=== PATIENT | male | born 1940 | race Caucasian/White ===

== ENCOUNTER → 2016-09-24 | Outpatient (CLI) | payer OTHER, MEDICARE ==
[~2016-09-24] MED LIST: ACCUPRIL40MGTAB PO; ASPIRIN E.C. 8181 MG PO; COREG12.5 MG PO; CRESTOR40 MG PO; EPA1000 MG PO; METFORMIN1000 MG PO; MULTIVITAMIN1 CTB PO; QUINAPRIL40 MG PO; VITAMIN B121000 MC1 PO; VITAMIN D1000 IU PO
== END ==
LOC: SUN.DIA 09-22 15:59
DX: E11.9 Type 2 diabetes mellitus without complications (principal); Z68.30 Body mass index [BMI] 30.0-30.9, adult; Z71.3 Dietary counseling and surveillance; E78.5 Hyperlipidemia, unspecified; I10 Essential (primary) hypertension; Z95.0 Presence of cardiac pacemaker; Z85.46 Personal history of malignant neoplasm of prostate

== ENCOUNTER 2017-01-07 13:56 | Emergency (ER) | payer OTHER, MEDICARE ==
[~2017-01-07] VITALS: Ht 177.8 cm; Wt 93.6 kg
[2017-01-07 13:59] VITALS: BP 126/78; PULSE 89; TEMP 97.9
== END 2017-01-07 15:25 | disposition left against medical advice (07) ==
LOC: COL.ER 13:56
DX: K59.00 Constipation, unspecified (principal); Z53.21 Procedure and treatment not carried out due to patient leaving prior to being seen by health care provider

== ENCOUNTER → 2017-04-15 | Outpatient (CLI) | payer OTHER, MEDICARE | LOC: SUN.DIA 09:39 | DX: E11.9 Type 2 diabetes mellitus without complications (principal); E78.5 Hyperlipidemia, unspecified; I10 Essential (primary) hypertension; Z68.33 Body mass index [BMI] 33.0-33.9, adult; Z71.3 Dietary counseling and surveillance | CPT/HCPCS: G0108 ==

== ENCOUNTER 2017-08-02 14:46 | Inpatient (IN) | payer OTHER, MEDICARE ==
[~2017-08-02] VITALS: Ht 177.8 cm; Wt 96.3 kg
[~2017-08-02 14:46] MED LIST changes: +COREG 25MG25 MG/TAB PO; +CRESTOR20 MG PO; -CRESTOR40 MG PO; +GLUCOPHAGE500 MG/TAB PO; -METFORMIN1000 MG PO
[2017-08-02 15:55] LABS: BASO % 0.3 % (0.0-2.0); GRAN # 13.4 (1.4-6.5); GRAN % 87.5 % (42.2-75.2); HEMATOCRIT 41.6 % (42.0-52.0); HEMOGLOBIN 13.8 g/dl (13.5-18.0); LYMPH # 0.7 (1.2-3.4); LYMPH % 4.8 % (20.0-51.0); MEAN CELL VOLUME 92 fl (80.0-100.0); MEAN CORPUSCULAR HEMOGLOBIN 31 pg (27.0-31.0); MEAN CORPUSCULAR HGB CONC 33 g/dl (33.0-37.0); MEAN PLATELET VOLUME 9.4 fl (7.4-10.4); MONO % 6.4 % (1.7-9.3); PLATELET COUNT 184 K/mm3 (130-400); RED BLOOD COUNT 4.52 M/mm3 (4.20-5.60); REDCELL DISTRIBUTION WIDTH-CV 12.4 % (11.5-14.5)
[2017-08-02 16:00] LABS: ALANINE AMINOTRANSFERASE 32 U/L (21-72); ALBUMIN 4.2 gm/dL (3.5-5.0); ALKALINE PHOSPHATASE 48 U/L (50-136); ANION GAP 11 mmol/L (7-16); AST,SGOT 19 U/L (15-37); BILIRUBIN,TOTAL 0.6 mg/dL (0.0-1.0); BLOOD UREA NITROGEN 17 mg/dL (9-20); CALCIUM 9.1 mg/dL (8.4-10.2); CARBON DIOXIDE 28 mmol/L (22-30); CHLORIDE 99 mmol/L (98-107); CREATININE, serum 1.01 mg/dL (0.66-1.25); GLUCOSE 171 mg/dL (74-106); POTASSIUM 3.9 mmol/L (3.4-5.0); SODIUM 139 mmol/L (137-145); TOTAL PROTEIN 7.3 gm/dL (6.4-8.2)
[2017-08-02 16:10] LABS: C-REACTIVE PROTEIN 3.8 mg/dL (0.0-0.9)
[2017-08-02 16:19] LABS: TROPONIN-I < 0.012 ng/mL (0.000-0.034)
[2017-08-02] MEDS ORDERED: OMEGA-3 1000 MG1 CAP PO (17:26)
[2017-08-02 19:47] VITALS: BP 105/52; PULSE 65; TEMP 99.8
[2017-08-02 21:32] LABS: COLLECTION METHOD CLEAN CATCH
[2017-08-02 21:39] LABS: PH 5 (5-8); URINE APPEARANCE Clear; URINE BILIRUBIN Negative (NEGATIVE); URINE BLOOD Negative (NEGATIVE); URINE COLOR Amber; URINE GLUCOSE Negative (NEGATIVE); URINE KETONE Trace (NEGATIVE); URINE LEUKOCYTE ESTERASE Negative (NEGATIVE); URINE NITRATE Negative (NEGATIVE); URINE PROTEIN(semi-quant) Negative (NEGATIVE); URINE UROBILINOGEN Negative (NEGATIVE)
[2017-08-02 23:28] VITALS: BP 104/41; PULSE 62; TEMP 97.8
[2017-08-03] VITALS (9 sets, daily range): BP systolic 74–123; BP diastolic 30–74; PULSE 59–71; TEMP 97.5–98.6
[2017-08-03 06:59] LABS: MEAN CELL VOLUME 93 fl (80.0-100.0); MEAN CORPUSCULAR HEMOGLOBIN 31 pg (27.0-31.0); MEAN CORPUSCULAR HGB CONC 34 g/dl (33.0-37.0); MEAN PLATELET VOLUME 9.3 fl (7.4-10.4); PLATELET COUNT 170 K/mm3 (130-400); RED BLOOD COUNT 3.87 M/mm3 (4.20-5.60); REDCELL DISTRIBUTION WIDTH-CV 12.7 % (11.5-14.5)
[2017-08-03 07:10] LABS: CREATININE, serum 0.91 mg/dL (0.66-1.25); POTASSIUM 3.4 mmol/L (3.4-5.0)
[2017-08-03 07:13] LABS: HEMATOCRIT 35.8 % (42.0-52.0)
[2017-08-03 09:32] LABS: BAND 32 % (0-10); LYMPHOCYTE 6 % (20.0-51.0); METAMYELOCYTE 2 % (0-0); NEUTROPHILS 59 % (42.0-75.2)
[2017-08-03 09:34] LABS: PLATELET ESTIMATE NORMAL (NORMAL)
[2017-08-04] VITALS (7 sets, daily range): BP systolic 105–147; BP diastolic 45–80; PULSE 70–72; TEMP 97.2–102.1
[2017-08-04 06:45] LABS: CALCIUM 8.2 mg/dL (8.4-10.2); CREATININE, serum 0.82 mg/dL (0.66-1.25); MAGNESIUM 2.1 mg/dL (1.6-2.3); POTASSIUM 3.5 mmol/L (3.4-5.0)
[2017-08-04 07:26] LABS: BASO # 0.1 (0.0-0.2); BASO % 0.4 % (0.0-2.0); EOS % 0.1 % (0-4.0); GRAN # 12.1 (1.4-6.5); GRAN % 85.4 % (42.2-75.2); LYMPH # 1.1 (1.2-3.4); LYMPH % 7.7 % (20.0-51.0); MEAN CELL VOLUME 93 fl (80.0-100.0); MEAN CORPUSCULAR HGB CONC 33 g/dl (33.0-37.0); MEAN PLATELET VOLUME 9.5 fl (7.4-10.4); MONO # 0.8 (0.1-0.6); MONO % 5.5 % (1.7-9.3); PLATELET COUNT 169 K/mm3 (130-400); RED BLOOD COUNT 3.72 M/mm3 (4.20-5.60); REDCELL DISTRIBUTION WIDTH-CV 13.1 % (11.5-14.5)
[2017-08-04 07:27] LABS: HEMATOCRIT 34.7 % (42.0-52.0); HEMOGLOBIN 11.6 g/dl (13.5-18.0); MEAN CORPUSCULAR HEMOGLOBIN 31 pg (27.0-31.0)
[2017-08-05] VITALS (7 sets, daily range): BP systolic 140–158; BP diastolic 69–88; PULSE 70–74; TEMP 97.5–98.9
[2017-08-05 07:00] LABS: BASO # 0.1 (0.0-0.2); BASO % 0.5 % (0.0-2.0); EOS # 0.1 (0.0-0.7); EOS % 0.4 % (0-4.0); GRAN # 10.1 (1.4-6.5); GRAN % 85.6 % (42.2-75.2); HEMOGLOBIN 12.2 g/dl (13.5-18.0); LYMPH # 0.8 (1.2-3.4); LYMPH % 6.8 % (20.0-51.0); MEAN CELL VOLUME 91 fl (80.0-100.0); MEAN CORPUSCULAR HEMOGLOBIN 31 pg (27.0-31.0); MEAN CORPUSCULAR HGB CONC 34 g/dl (33.0-37.0); MEAN PLATELET VOLUME 9.5 fl (7.4-10.4); MONO # 0.6 (0.1-0.6); MONO % 5.3 % (1.7-9.3); PLATELET COUNT 181 K/mm3 (130-400); RED BLOOD COUNT 3.96 M/mm3 (4.20-5.60); REDCELL DISTRIBUTION WIDTH-CV 12.7 % (11.5-14.5)
[2017-08-05 07:05] LABS: CALCIUM 8.4 mg/dL (8.4-10.2); CREATININE, serum 0.74 mg/dL (0.66-1.25); POTASSIUM 3.5 mmol/L (3.4-5.0)
[2017-08-05 07:22] LABS: HEMATOCRIT 36.1 % (42.0-52.0)
[2017-08-06] VITALS (10 sets, daily range): BP systolic 118–160; BP diastolic 56–78; PULSE 62–93; TEMP 97.7–98.8
[2017-08-06 06:28] LABS: MEAN CELL VOLUME 92 fl (80.0-100.0); MEAN CORPUSCULAR HEMOGLOBIN 31 pg (27.0-31.0); MEAN CORPUSCULAR HGB CONC 34 g/dl (33.0-37.0); MEAN PLATELET VOLUME 9.5 fl (7.4-10.4); PLATELET COUNT 185 K/mm3 (130-400); RED BLOOD COUNT 3.85 M/mm3 (4.20-5.60); REDCELL DISTRIBUTION WIDTH-CV 12.9 % (11.5-14.5)
[2017-08-06 06:32] LABS: HEMATOCRIT 35.4 % (42.0-52.0)
[2017-08-06 06:47] LABS: CALCIUM 8.5 mg/dL (8.4-10.2); CREATININE, serum 0.79 mg/dL (0.66-1.25); MAGNESIUM 1.9 mg/dL (1.6-2.3); POTASSIUM 3.4 mmol/L (3.4-5.0)
[2017-08-06 08:13] LABS: BAND 40 % (0-10); LYMPHOCYTE 9 % (20.0-51.0); NEUTROPHILS 48 % (42.0-75.2); PLATELET ESTIMATE NORMAL (NORMAL); POLYCHROMASIA 1+
[2017-08-07 03:45] VITALS: BP 139/70; PULSE 70; TEMP 98.1
[2017-08-07 07:20] LABS: BASO % 0.5 % (0.0-2.0); EOS # 0.1 (0.0-0.7); EOS % 1.7 % (0-4.0); GRAN # 5.8 (1.4-6.5); GRAN % 76.6 % (42.2-75.2); HEMOGLOBIN 12.2 g/dl (13.5-18.0); LYMPH # 0.9 (1.2-3.4); LYMPH % 12.2 % (20.0-51.0); MEAN CELL VOLUME 92 fl (80.0-100.0); MEAN CORPUSCULAR HEMOGLOBIN 31 pg (27.0-31.0); MEAN CORPUSCULAR HGB CONC 33 g/dl (33.0-37.0); MEAN PLATELET VOLUME 9.4 fl (7.4-10.4); MONO # 0.6 (0.1-0.6); MONO % 7.7 % (1.7-9.3); PLATELET COUNT 214 K/mm3 (130-400); RED BLOOD COUNT 3.99 M/mm3 (4.20-5.60); REDCELL DISTRIBUTION WIDTH-CV 12.7 % (11.5-14.5)
[2017-08-07 07:36] LABS: HEMATOCRIT 36.6 % (42.0-52.0)
[2017-08-07 07:41] LABS: CALCIUM 8.5 mg/dL (8.4-10.2); CREATININE, serum 0.77 mg/dL (0.66-1.25); POTASSIUM 3.6 mmol/L (3.4-5.0)
[2017-08-07 07:43] VITALS: BP 142/91; PULSE 75; TEMP 98
[2017-08-07 11:18] VITALS: BP 153/87; PULSE 70; TEMP 98.2
[2017-08-07] MEDS ORDERED: PRINIVIL20 MG PO (11:45)
[2017-08-07] MEDS ORDERED: BETAPACE 80MG80 MG PO (11:45)
[2017-08-07] MEDS ORDERED: Florastor PO (11:46)
[2017-08-07] MEDS ORDERED: ASPIRIN E.C. 8181 MG PO (11:46)
[2017-08-07] MEDS ORDERED: DOXYCYCLINE 10100 MG PO (11:55)
[2017-08-07] MEDS ORDERED: PROBIOTIC ACID1 EAC3 PO (11:56)
== END 2017-08-07 13:00 | disposition home or self-care (01) | DRG 854 ==
LOC: COL.ER 14:46 → MEDICAL 17:14
PROVIDERS: Family Medicine; Nurse Practitioner Family; Orthopaedic Surgery
PROC: 0LD70ZZ Extraction of Right Hand Tendon, Open Approach (ICD-10-PCS; 2017-08-06)
PROC: 0LN50ZZ Release Right Lower Arm and Wrist Tendon, Open Approach (ICD-10-PCS; principal; 2017-08-06 15:30)
DX: A41.9 Sepsis, unspecified organism (principal); I48.92 Unspecified atrial flutter; J20.9 Acute bronchitis, unspecified; R65.20 Severe sepsis without septic shock; I48.0 Paroxysmal atrial fibrillation; I10 Essential (primary) hypertension; I25.5 Ischemic cardiomyopathy; I25.10 Atherosclerotic heart disease of native coronary artery without angina pectoris; Z23 Encounter for immunization; Z85.46 Personal history of malignant neoplasm of prostate; Z95.5 Presence of coronary angioplasty implant and graft; Z95.0 Presence of cardiac pacemaker; M65.141 Other infective (teno)synovitis, right hand; R73.03 Prediabetes
CPT/HCPCS: 99222-AI; 99232-AI; 99233-AI; 99239; J0456; J0690; J0696; J1650; J2270; J2405; J2704; J3010; J3370; J7030; J7040; J7050

== ENCOUNTER 2018-07-15 10:57 | Day surgery (SDC) | payer MEDICARE ==
[~2018-07-15] VITALS: Ht 177.8 cm; Wt 95.9 kg
[~2018-07-15 10:57] MED LIST changes: +BETAPACE 80MG80 MG PO; +DOXYCYCLINE 10100 MG PO; +Florastor PO; +OMEGA-3 1000 MG1 CAP PO; +PRINIVIL20 MG PO; +PROBIOTIC ACID1 EAC3 PO
[2018-07-15 11:28] LABS: HEMOGLOBIN 10.7 g/dl (13.5-18.0)
[2018-07-15 11:29] LABS: HEMATOCRIT 32.2 % (42.0-52.0)
[2018-07-15 11:45] VITALS: BP 132/80; PULSE 77; TEMP 98
[2018-07-15] MEDS ORDERED: BETAPACE 80MG80 MG PO (11:52)
[2018-07-15] MEDS ORDERED: PRINIVIL20 MG PO (11:54)
[2018-07-15] MEDS ORDERED: ELIQUIS 5MG PO (11:56)
[2018-07-15 12:05] LABS: CALCIUM 9.1 mg/dL (8.4-10.2); CREATININE, serum 0.87 mg/dL (0.66-1.25); POTASSIUM 3.9 mmol/L (3.4-5.0)
[2018-07-15 13:05] VITALS: BP 137/86; PULSE 71; TEMP 96.9
--- NOTE | 2018-07-15 13:05 | NUR ---
The patient is wheeled to [facility] via cart by Consuelo DUKE. The patient ambulates to the chair with a steady gait and nurse standby assist. The patient's vital signs are stable. Report is obtained. The patient requests vanilla pudding, apple sauce, and coffee which is brought to him at this time. The call light is within reach and the patient's is at the bedside. Will continue to monitor.
[2018-07-15 13:20] VITALS: BP 148/78; PULSE 70
--- NOTE | 2018-07-15 13:20 | NUR ---
The patient's vital signs are stable. The patient tolerated the pudding, apple sauce, and coffee and has talked to Dr. Marquez. The patient denies any complaints or concerns. The call light is within reach and the patient's is at the bedside. Will continue to [facility].
[2018-07-15 13:35] VITALS: BP 138/75; PULSE 72
--- NOTE | 2018-07-15 13:35 | NUR ---
The patient's vital signs are stable. The patient states he is ready to be discharged. The discharge instructions will be reviewed with the patient.
--- NOTE | 2018-07-15 13:40 | NUR ---
The discharge instructions are reviewed with the patient by Angela DUKE and all questions are answered. The IV is removed and the tip is intact and a dressing is applied. The patient changes into his personal clothes to be discharged home.
--- NOTE | 2018-07-15 13:44 | NUR ---
The patient is wheeled to the patient entrance via wheelchair by Angela DUKE to be discharged home via personal vehicle by his . The patient is sent home with his discharge instructions and education packet and prescription.
[2018-07-15 15:51] VITALS: BP 118/70; PULSE 72
== END 2018-07-15 13:45 | disposition home or self-care (01) ==
LOC: SDCO 10:57
PROVIDERS: Surgery
DX: D50.0 Iron deficiency anemia secondary to blood loss (chronic) (principal); K92.1 Melena; K44.9 Diaphragmatic hernia without obstruction or gangrene; K29.60 Other gastritis without bleeding; I44.1 Atrioventricular block, second degree; I10 Essential (primary) hypertension; E11.9 Type 2 diabetes mellitus without complications; E78.00 Pure hypercholesterolemia, unspecified; E78.5 Hyperlipidemia, unspecified; I48.0 Paroxysmal atrial fibrillation; I25.2 Old myocardial infarction; I25.110 Atherosclerotic heart disease of native coronary artery with unstable angina pectoris; M19.90 Unspecified osteoarthritis, unspecified site; Z79.01 Long term (current) use of anticoagulants; Z79.82 Long term (current) use of aspirin; Z79.84 Long term (current) use of oral hypoglycemic drugs; Z95.0 Presence of cardiac pacemaker; Z90.49 Acquired absence of other specified parts of digestive tract; Z90.79 Acquired absence of other genital organ(s); Z85.46 Personal history of malignant neoplasm of prostate; Z85.828 Personal history of other malignant neoplasm of skin; Z92.3 Personal history of irradiation
CPT/HCPCS: J2704; J3010; J7030

== ENCOUNTER 2020-07-01 11:45 | Outpatient (CLI) | payer MEDICARE, OTHER ==
[2020-07-01] VITALS (7 sets, daily range): BP systolic 133–169; BP diastolic 73–92; PULSE 70–89
[~2020-07-01] VITALS: Ht 177.8 cm; Wt 95.1 kg
[~2020-07-01 11:45] MED LIST changes: +ASPIRIN 81M81 MG/TA2 PO; +COUMADIN 22.5 MG/TAB PO; +COUMADIN 5MG5 MG/TAB PO; +ELIQUIS 5MG PO; +MELATONIN5 M1 SL; +ON GUARD
--- NOTE | 2020-07-01 14:48 | NUR ---
Pt assisted out to 's car by wheelchair with personal belongings. Bandaid remains clean, dry and intact. Gait steady about room, and pt denies concerns. He expresses understanding of DC instructions.
== END 2020-07-01 14:57 | disposition home or self-care (01) ==
LOC: COL.RAD 11:45
DX: M48.061 Spinal stenosis, lumbar region without neurogenic claudication (principal)
CPT/HCPCS: Q9965

== ENCOUNTER 2021-03-05 06:45 | Day surgery (SDC) | payer MEDICARE ==
[~2021-03-05] VITALS: Ht 177.8 cm; Wt 96.0 kg
[2021-03-05 07:26] VITALS: BP 157/92; PULSE 65; TEMP 98.3
[2021-03-05 07:32] LABS: HEMATOCRIT 42.9 % (42.0-52.0); HEMOGLOBIN 14.2 g/dl (13.5-18.0); MEAN CELL VOLUME 92 fl (80.0-100.0); MEAN CORPUSCULAR HEMOGLOBIN 30 pg (27.0-31.0); MEAN CORPUSCULAR HGB CONC 33 g/dl (33.0-37.0); MEAN PLATELET VOLUME 10.2 fl (7.4-10.4); PLATELET COUNT 200 K/mm3 (130-400); RED BLOOD COUNT 4.67 M/mm3 (4.20-5.60); REDCELL DISTRIBUTION WIDTH-CV 13.8 % (11.5-14.5)
[2021-03-05 07:42] LABS: CALCIUM 8.9 mg/dL (8.4-10.2); CREATININE, serum 0.97 (0.66-1.25); POTASSIUM 4.1 mmol/L (3.4-5.0)
[2021-03-05 08:01] LABS: INR 1.3 (0.8-3.0); PROTHROMBIN TIME 14.9 SECONDS (9.7-12.8)
[2021-03-05 17:49] VITALS: BP 118/60; PULSE 58; TEMP 98.1
[2021-03-05 17:55] VITALS: BP 113/77; PULSE 59
--- NOTE | 2021-03-05 18:01 | NUR ---
Pt. admitted to room 354 s/p pacemaker lead adjustment. Pt. alert & oriented x4. Pt. oriented to unit, call light, and telephone. Frequent vital signs in place. Vitals WNL at this time. Plan for pt. to get breakfast. Pt. instructed to call if he needs to use the restroom, he denies the need to use the restroom at this time.
[2021-03-06 04:24] VITALS: BP 134/74; PULSE 60; TEMP 97.8
--- NOTE | 2021-03-06 05:36 | NUR ---
PT HAD UNEVENTFUL NIGHT, SITE DRESSING C/D/I, SLING REMAINS ON. MEDICATIONS ADMINISTERED ORDERED. PT DENIES PAIN,N,V,D,SOA. ALL NEEDS MET. CALL LIGHT WTIHIN REACH.
--- NOTE | 2021-03-06 08:44 | NUR ---
Assessment completed, alert/oriented, vital signs stable, denies pain or discomfort, left chest incision site dressing is C/D/I, no signs of bleeding or hematoma, device download sent to [employer] he is wearing left arm sling/immobilizer, paced on tele, lungs CTA/ no resp.difficulty noted, he has had [place] and morning meds given, plans for discharge home today, denies other needs at this time
[2021-03-06 09:20] VITALS: BP 97/58; PULSE 61; TEMP 98
--- NOTE | 2021-03-06 10:17 | NUR ---
First visit from the keno writer / runner. No needs right now.
--- NOTE | 2021-03-06 11:31 | NUR ---
SW met with patient at bedside to discuss discharge planning. Patient's , Reggie, ([phone]) was also in the room. Patient and reside in a home in [place]. There are 14 steps to the basement, which patient admits he enters on occasion but is very purposeful going down the stairs. He reports that he is highly independent but he has a walker and a cane at the home but he doesn't use either. He also has a raised toilet but no oxygen needs. Patient's PCP is Dr. Fredi Boss, he uses [employer] to obtain his medications and he has no difficulty affording them. His son is his financial POA but he and his were interested in a DPOA. This worker provided them with the form to complete and they want to complete it later. *Anticipate patient will d/c home with ; no needs
[2021-03-06] MEDS ORDERED: CEPHALEXIN500 M1 PO (12:37)
--- NOTE | 2021-03-06 14:05 | NUR ---
Discharge orders reviewed with the patient and his , instructed to follow up with Cardiology as scheduled, instructed to finish course of Abx as prescribed, IV and tele removed, discussed activity/ bathing restrictions, he is ambulatory and i escorted them to the door
== END 2021-03-06 13:00 | disposition home or self-care (01) ==
LOC: COL.CAR 06:45 → MEDICAL 17:50 → COL.CAR 03-06 13:00
PROVIDERS: Internal Medicine Cardiovascular Disease
DX: Z45.010 Encounter for checking and testing of cardiac pacemaker pulse generator [battery] (principal); I48.0 Paroxysmal atrial fibrillation; I25.10 Atherosclerotic heart disease of native coronary artery without angina pectoris; E11.9 Type 2 diabetes mellitus without complications; Z20.822 Contact with and (suspected) exposure to COVID-19
CPT/HCPCS: OP; C1785; C1894; C1898; J0690; J2250; J3010; J7030; Q9967

== ENCOUNTER → 2021-04-24 | Outpatient (CLI) | payer MEDICARE ==
[~2021-04-24] MED LIST changes: +CEPHALEXIN500 M1 PO
== END ==
LOC: COL.RAD 06:50
DX: M48.07 Spinal stenosis, lumbosacral region (principal); M54.50 Low back pain, unspecified
CPT/HCPCS: G0260; J3301

== ENCOUNTER → 2021-05-23 | Outpatient (CLI) | payer MEDICARE | LOC: COL.RAD 12:28 | DX: M25.551 Pain in right hip (principal) | CPT/HCPCS: J3301; Q9967 ==

== ENCOUNTER → 2021-07-02 | Outpatient (CLI) | payer MEDICARE | LOC: COL.RAD 09:24 | DX: K57.30 Diverticulosis of large intestine without perforation or abscess without bleeding (principal); I70.0 Atherosclerosis of aorta; M47.819 Spondylosis without myelopathy or radiculopathy, site unspecified; Z90.79 Acquired absence of other genital organ(s) | CPT/HCPCS: Q9967 ==

== ENCOUNTER 2023-08-09 06:09 | Day surgery (SDC) | payer MEDICARE ==
[~2023-08-09] VITALS: Ht 177.8 cm; Wt 83.6 kg
[~2023-08-09 06:09] MED LIST changes: +BETAPACE AF80 MG/TA1 PO; +LR 1,000 ML IV SCH; +Ondansetron 4 MG/2 ML VIAL IV PRN; +ZESTRIL 20MG TA20 MG PO
[2023-08-09] MEDS ORDERED: GLUCOPHAGE1000 MG PO (07:14)
[2023-08-09 07:26] VITALS: BP 104/66; PULSE 78; TEMP 98.2
[2023-08-09] MEDS ORDERED: Lidocaine PF 2% (20 MG/ML) 5 ML VIAL ONE (07:54)
[2023-08-09] MEDS ORDERED: ePHEDrine 50 MG/ML VIAL ONE (08:16)
[2023-08-09 08:30] VITALS: BP 100/55; PULSE 70
[2023-08-09 08:45] VITALS: BP 98/54; PULSE 60
[2023-08-09 09:00] VITALS: BP 93/52; PULSE 60
[2023-08-09 09:05] VITALS: BP 102/54; PULSE 60
--- NOTE | 2023-08-09 09:21 | NUR ---
0830 PATIENT RETURNS TO [facility] VIA CART. PT AWAKE AND ALERT. RESPIRATIONS UNLABORED. AMBULATED TO RECLINER CHAIR WITH 2:1 SBA. PT DENIES NAUSEA OR ABDOMINAL PAIN. HOOKED UP TO MONITOR AND VS OBTAINED. CALL LIGHT AT SIDE AND PRESENT. 0834 PATIENT TOLERATING COFFEE AND MUFFIN/JELLO WITHOUT NAUSEA OR DIFFICULTY SWALLOWING (EGD ONLY). 0832 IN ROOM SPEAKING WITH PATIENT. 0912 D/C INSTRUCTIONS REVIEWED WITH PATIENT. PT VERBALIZED UNDERSTANDING AND A COPY OF INSTRUCTIONS PROVIDED IN D/C FOLDER. 0915 PATIENT DRESSES SELF. 0920 PATIENT DISCHARGED FROM UNIT VIA W/C TO A PERSONAL VEHICLE. PT LEFT HOSPITAL IN STABLE CONDITION.
[2023-08-10] MEDS ORDERED: LR 1,000 ML IV SCH (08:00)
[2023-08-11] MEDS ORDERED: NORCO 325 MG-51 TAB PO (08:53)
== END 2023-08-09 09:20 | disposition home or self-care (01) ==
LOC: SDCO 06:09
DX: R93.5 Abnormal findings on diagnostic imaging of other abdominal regions, including retroperitoneum (principal); K38.8 Other specified diseases of appendix; Z92.29 Personal history of other drug therapy; Z85.51 Personal history of malignant neoplasm of bladder
CPT/HCPCS: J2704; J7120